=== PATIENT | male | born 1995 | race Caucasian/White ===

== ENCOUNTER 2023-01-21 10:28 | Emergency (ER) | payer MEDICAID ==
[2023-01-21 10:39] VITALS: BP 149/67; O2SAT 98
[2023-01-21 11:06] LABS: BASOPHILS % (AUTO) 0.2 %; EOSINOPHILS # (AUTO) 0.1 10^3/uL (0.0-0.7); EOSINOPHILS % (AUTO) 0.9 %; HCT - HEMATOCRIT 39.3 % (42.0-52.0); HGB - HEMOGLOBIN 12.9 g/dL (14.0-18.0); LYMPHOCYTES # (AUTO) 1.3 10^3/uL (1.5-3.5); LYMPHOCYTES % (AUTO) 12.5 %; MEAN CORPUSCULAR HEMOGLOBIN 27.8 pg (27.0-31.0); MEAN CORPUSCULAR HGB CONC 32.8 g/dL (32.0-36.0); MEAN CORPUSCULAR VOLUME 84.7 fL (80.0-94.0); MEAN PLATELET VOLUME 8.6 fL (7.4-11.4); MONOCYTES # (AUTO) 1.1 10^3/uL (0.0-1.0); MONOCYTES % (AUTO) 10.4 %; NEUTROPHILS # (AUTO) 7.8 10^3/uL (1.5-6.6); NEUTROPHILS % (AUTO) 75.7 %; PLT - PLATELET COUNT 313 10^3/uL (130-450); RED BLOOD COUNT 4.64 10^6/uL (4.70-6.10); RED CELL DISTRIBUTION WIDTH 12.7 % (12.0-15.0); WHITE BLOOD COUNT 10.2 x10^3/uL (4.8-10.8)
[2023-01-21] MEDS ORDERED: LIDOCAINE-EPINEPH-TETRACAINE 3 ML SYRINGE TOP STA (11:16)
[2023-01-21] MEDS ORDERED: HYDROmorphone 1 MG/ML CARPUJECT IVP STA (11:16)
[2023-01-21 11:24] LABS: ALBUMIN 4.3 g/dL (3.2-5.5); ALBUMIN/GLOBULIN RATIO 1.6 (1.0-2.2); ALKALINE PHOSPHATASE 63 IU/L (42-121); ALT ALANINE AMINOTRANSFERASE 13 IU/L (10-60); AST ASPARTATE AMINOTRANSFERASE 12 IU/L (10-42); BILIRUBIN,TOTAL 0.4 mg/dL (0.2-1.0); BUN - BLOOD UREA NITROGEN 9 mg/dL (6-20); CALCIUM 9.4 mg/dL (8.5-10.3); CARBON DIOXIDE - CO2 34 mmol/L (21-32); CHLORIDE 97 mmol/L (101-111); CREATININE 0.7 mg/dL (0.6-1.3); GFR - MDRD 133 (>89); GLUCOSE 106 mg/dL (74-104); POTASSIUM 3.9 mmol/L (3.5-4.5); SODIUM 135 mmol/L (135-145)
[2023-01-21 11:25] LABS: LIPASE < 10 U/L (11-82)
--- NOTE | 2023-01-21 12:10 | ED Physician Documentation ---
History of Present Illness - Stated complaint Stated Complaint: GI - Chief complaint Chief Complaint: General - History obtained from History obtained from: Patient - Additonal information Additional information: Patient is a 27-year-old male presenting for evaluation of rectal pain along with bright red blood in his stools. Patient states that for the past several weeks he has had some constipation and pain with bowel movements. Over the past several days he has noticed a blood mixed in with his normal colored stools. For the past 2 days he says he has felt some swelling in the rectal area with a large amount of discomfort. Denies prior history of similar symptoms. Does not take a blood thinner. No abdominal symptoms. Review of Systems Constitutional: denies: Fever Cardiac: denies: Chest pain / pressure Respiratory: denies: Dyspnea GI: reports: Constipation, Bloody / black stool. denies: Abdominal Pain, Vomiting, Diarrhea : denies: Dysuria PD PAST MEDICAL HISTORY - Allergies Allergies/Adverse Reactions: Allergies Allergy/AdvReac Type Severity Reaction Status Date / Time No Known Drug Allergies Allergy Verified 01/21/23 10:36 PD ED PE NORMAL - General General: Alert and oriented X 3, No acute distress, Well developed/nourished - HEENT HEENT: Atraumatic, Moist mucous membranes, Pharynx benign - Neck Neck: Supple, no meningeal sign - Cardiac Cardiac: RRR, No murmur, Strong equal pulses - Respiratory Respiratory: No respiratory distress, Clear bilaterally - Abdomen Abdomen: Normal bowel sounds, Soft, Non tender, Non distended - Rectal Rectal: Other (Chaperoned by [id number] Mayers; pt would not allow for exam due to pain in rectal region; difficult to even visualize due to pain and cooperation - plan for pain meds and reevaluation) - Neuro Neuro: Normal speech Results - Vitals Vitals: Vital Signs - 24 hr 01/21/23 10:31 Temperature 37.1 C Heart Rate 107 H Respiratory 18 Rate Blood Pressure 149/67 H O2 Saturation 98 Oxygen O2 Source Room air - Labs Labs: Laboratory Tests 01/21/23 01/21/23 11:02 11:02 WBC 10.2 RBC 4.64 L Hgb 12.9 L Hct 39.3 L MCV 84.7 MCH 27.8 MCHC 32.8 RDW 12.7 Plt Count 313 MPV 8.6 Neut # (Auto) 7.8 H Lymph # (Auto) 1.3 L [place] # (Auto) 1.1 H Eos # (Auto) 0.1 Baso # (Auto) 0.0 Absolute Nucleated RBC 0.00 Nucleated RBC % 0.0 Sodium 135 Potassium 3.9 Chloride 97 L Carbon Dioxide 34 H Anion Gap 4.0 L BUN 9 Creatinine 0.7 Estimated GFR (MDRD) 133 Glucose 106 H Calcium 9.4 Total Bilirubin 0.4 AST 12 ALT 13 Alkaline Phosphatase 63 Total Protein 7.0 Albumin 4.3 Globulin 2.7 Albumin/Globulin Ratio 1.6 Lipase < 10 L PD Medical Decision Making - ED course ED course: Patient is a 27-year-old male presenting for evaluation of rectal pain as well as blood per rectum. Patient has no abdominal tenderness. I was unable to complete rectal exam due to patient's discomfort so plan was to administer IV pain medications and then reassess. CBC and chemistries were obtained and reviewed. Hemoglobin is 12.9 with no prior for comparison. IV and IV narcotics were ordered but patient told nurse he wanted to leave prior to administering any pain medications. Patient got himself dressed per the RN and left prior to me being able to have a conversation with him. He did not appear altered. Departure - Departure Disposition: ED [place] Clinical Impression: Rectal pain, Blood per rectum Forms: PCP List Discharge Date/Time: 01/21/23 11:52
== END 2023-01-21 11:52 | disposition left against medical advice (07) ==
LOC: ED 10:28
DX: K62.5 Hemorrhage of anus and rectum (principal); K62.89 Other specified diseases of anus and rectum
CPT/HCPCS: 36415; 80053; 83690; 85025; 99283